=== PATIENT | female | born 1950 | race Caucasian/White ===

== ENCOUNTER 2016-11-24 08:03 | Day surgery (SDC) | payer MEDICARE, OTHER ==
[~2016-11-24 08:03] MED LIST: BECL80AE3 INH; CHOL50006 PO; CYAN1000P SL; FISH100020 PO; LEVO.1 PO; LEVO100T4 PO; PROBCAP4 PO; TAB-TAB PO; VALA1TAB PO; [UNRECOGNIZED DRUG - REMARK] PO
[2016-11-24 09:04] VITALS: BP 110/67; PULSE 109; RESP 18; TEMP 98.7; O2SAT 97
--- NOTE | 2016-11-24 09:31 | PD.RAD ---
Post US Procedure Prog Note Pre Procedure Diagnosis: (1) Lung cancer (2) Pleural effusion Post Procedure Diagnosis: (1) Pleural effusion (2) Lung cancer Procedure Date: Nov 24, 2016 Supervising Radiologist: Emerson Poole Estimated blood loss: none Plan of Activity Patient to Unit: ROPU Patient Condition: Good See PACS Report for procedural detail/treatment Drainage Procedure Procedure 1 Imaging Guidance: Ultrasound Side: Left Procedure Type: Thoracentesis Procedure: Removal Drainage: Suction Fluid Removal (CCs): 300 Fluid Description: Clear, Yellow Plan to ROPU for monitoring then discharge. Emerson Poole MD Nov 24, 2016 09:31
[2016-11-24 09:45] VITALS: BP 129/77; PULSE 103; RESP 20; TEMP 98.5; O2SAT 99
[2016-11-24 10:00] VITALS: BP 127/79; PULSE 98; RESP 20; O2SAT 99
--- NOTE | 2016-11-24 10:23 | RADRPT ---
EXAM DATE/TIME: 11/24/2016 09:39 [facility] COMPARISON: CHEST EXPIRATION ONLY, July 31, 2013, 13:47. INDICATIONS : Post left thoracentesis. MEDICAL HISTORY : Carcinoma, lung. Asthma. Brain carcinoma. SURGICAL HISTORY : Hysterectomy. Appendectomy. Cholecystectomy. Left lower lobectomy. Brain tumor removed. ENCOUNTER: Initial ACUITY: 1 day PAIN SCORE: 0/10 LOCATION: Left chest FINDINGS: Status post left thoracentesis. No evidence of pneumothorax. Continue to be some infiltrate throughou t the left hemithorax. There is an infiltrate in the right upper lung. There is a right-sided central line in place. CONCLUSION: Status post left thoracentesis. No pneumothorax. Gallo Peguero MD on November 24, 2016 at 10:20 Board Certified Radiologist. This report was verified electronically.
[2016-11-24 11:29] LABS: TOTAL PROTEIN,PLEURAL FLUID 3.9 GM/DL
[2016-11-24] MEDS ORDERED: LIDOCAINE HCL 1% PF 30 ML VIAL ONE (12:47)
--- NOTE | 2016-11-24 13:21 | RADRPT ---
EXAM DATE/TIME: 11/24/2016 08:57 [facility] COMPARISON: No previous studies available for comparison. INDICATIONS : Left pleural effusion. MEDICAL HISTORY : Chronic obstructive pulmonary disease. Hypothyroidism. GERD. Lung cancer. Asthma. OA. Migraines. SURGICAL HISTORY : Hysterectomy. Cholecystectomy. Appendectomy. Crainioectomy. Tonsillectomy. ENCOUNTER: Initial ACUITY: 1 day PAIN SCORE: 0/10 LOCATION: Left chest FLUID: Total volume of 325 cc of clear, red fluid was removed. Fluid was sent to lab for ordered studies. TECHNIQUE: 1. Ultrasound guidance for thoracentesis. 2. Thoracentesis. The risks, benefits, and alternatives to ultrasound guided thoracentesis were explained to the patien t in lay simple terms, including the risk of bleeding and infection. Written and verbal informed con sent was obtained. Appropriate area for thoracentesis was marked under ultrasound guidance with the patient in the uprig ht position. Overlying skin was prepped and draped in the usual sterile fashion and with local anest hetic, a dermatotomy was made with an 11 blade scalpel. A 6 [place] thoracentesis catheter was placed in the pleural space and fluid was removed. Catheter was then removed and a sterile dressing applie d. There were no immediate complications. The patient tolerated the procedure well and the left the ultrasound suite in stable condition. Chest radiograph is to be obtained. CONCLUSION: Uncomplicated ultrasound guided thoracentesis. Emerson Poole MD on November 24, 2016 at 13:18 Board Certified Radiologist. This report was verified electronically.
== END 2016-11-24 10:40 | disposition home or self-care (01) ==
LOC: HRAD 08:03 → HRIP 08:05 → HRAD 10:40
PROVIDERS: ATTEND Internal Medicine Hematology & Oncology
DX: J90 Pleural effusion, not elsewhere classified (principal); J45.909 Unspecified asthma, uncomplicated; J44.9 Chronic obstructive pulmonary disease, unspecified; E03.9 Hypothyroidism, unspecified; K21.9 Gastro-esophageal reflux disease without esophagitis; M19.90 Unspecified osteoarthritis, unspecified site; Z85.118 Personal history of other malignant neoplasm of bronchus and lung; Z85.841 Personal history of malignant neoplasm of brain
CPT/HCPCS: 32555; 71010; 83615; 84157; 88112; 88305; C1729

== ENCOUNTER 2017-06-08 13:02 | Day surgery (SDC) | payer MEDICARE, OTHER ==
[2017-06-08 13:59] VITALS: BP 124/82; PULSE 90; RESP 16; TEMP 98.5; O2SAT 99
[2017-06-08 15:15] VITALS: BP 120/61; PULSE 94; RESP 18; O2SAT 99
--- NOTE | 2017-06-08 15:21 | RADRPT ---
EXAM DATE/TIME: 06/08/2017 13:52 [facility] COMPARISON: No previous studies available for comparison. INDICATIONS : Enlarged left supraclavicular lymph node. MEDICAL HISTORY : Carcinoma, lung. Hypothyroidism. Metastatic, brain. Asthma. COPD. GERD. SURGICAL HISTORY : Hysterectomy. Cholecystectomy. Appendectomy. Power port. Radiation. Left lower lung lobectomy. Cranio estefania 2013. ENCOUNTER: Initial ACUITY: 2 weeks PAIN SCORE: 0/10 LOCATION: Left supraclavicular region. ORGAN: Left lymph node SPECIMENS: Five core specimen(s) submitted for pathologic evaluation. DEVICE: 18 gauge Temno needle Post procedure scanning reveals no hematoma or other complication. The possibility does exist that the tissue obtained will be non-diagnostic. If the sample is non-michelle gnostic a repeat biopsy or surgical biopsy may need to be performed. TECHNIQUE: 1. Ultrasound guidance for needle biopsy. 2. Needle biopsy. The risks, benefits and alternatives to the procedure were explained and verbal and written consent w as obtained. The site was prepped in sterile fashion. Full sterile technique was used, including ca p, mask, sterile gloves and gown and a large sterile sheet. Hand hygiene and 2% chlorhexidine and/or betadine/alcohol prep was utilized per protocol for cutaneous antisepsis. The skin and subcutaneous tissues were infiltrated with local anesthetic solution. Sterile gel and sterile probe cover were u tilized for ultrasound guidance. With the patient on the ultrasound table, images were obtained. The images demonstrate a lobulated hy poechoic solid mass measuring approximately 2.0 x 3.5 x 2.6 cm. And is located directly adjacent to t he internal jugular vein and common carotid artery. A needle was advanced into the left supraclavicular mass and 5 specimens were obtained and submitted for pathologic evaluation. The patient tolerated the procedure well and left the ultrasound suite in stable condition. CONCLUSION: Uncomplicated ultrasound guided needle biopsy of the abnormal left supraclavicular mass/lymph node. Emerson Poole MD on June 08, 2017 at 15:18 Board Certified Radiologist. This report was verified electronically.
[2017-06-08 15:30] VITALS: BP 121/73; PULSE 89; RESP 18; O2SAT 98
[2017-06-09] MEDS ORDERED: LIDOCAINE HCL 1% 20 ML VIAL ONE (07:56)
== END 2017-06-08 16:16 | disposition home or self-care (01) ==
LOC: HRAD 13:02 → HRIP 13:03 → HRAD 16:16
PROVIDERS: ATTEND Internal Medicine Hematology & Oncology
DX: R59.0 Localized enlarged lymph nodes (principal); C34.12 Malignant neoplasm of upper lobe, left bronchus or lung; E03.9 Hypothyroidism, unspecified; J44.9 Chronic obstructive pulmonary disease, unspecified; K21.9 Gastro-esophageal reflux disease without esophagitis
CPT/HCPCS: 38505; 76942; 88305; 88341; 88342